=== PATIENT | female | born 1975 | race Caucasian/White ===

== ENCOUNTER → 2021-01-21 | Outpatient (CLI) | payer OTHER | LOC: KOH-I 13:29 | DX: M54.5 Low back pain (principal); M25.512 Pain in left shoulder; M43.8X4 Other specified deforming dorsopathies, thoracic region; M48.04 Spinal stenosis, thoracic region; M43.17 Spondylolisthesis, lumbosacral region; M48.07 Spinal stenosis, lumbosacral region | CPT/HCPCS: 72070; 72100; 73000 ==

== ENCOUNTER → 2021-06-06 | Outpatient (CLI) | payer OTHER | LOC: LAB 21:38 | DX: Z02.83 Encounter for blood-alcohol and blood-drug test (principal) | CPT/HCPCS: 36415 ==